=== PATIENT | male | born 1980 | race Caucasian/White ===

== ENCOUNTER 2017-04-24 14:43 | Emergency (ER) | payer OTHER ==
[~2017-04-24] VITALS: Ht 177.8 cm; Wt 113.4 kg
[~2017-04-24 14:43] MED LIST: NORCO 5-325 TA1 EACH PO
== END 2017-04-24 15:29 | disposition home or self-care (01) ==
LOC: ED 14:43
DX: Z00.8 Encounter for other general examination (principal)